=== PATIENT | female | born 1995 | race Hispanic/Latino ===

== ENCOUNTER 2021-03-16 09:52 | Outpatient (CLI) | payer OTHER | END 2021-03-16 09:53 | disposition home or self-care (01) | LOC: BICULT 09:52 | PROVIDERS: ATTEND Family Medicine | DX: Z34.03 Encounter for supervision of normal first pregnancy, third trimester (principal); Z3A.28 28 weeks gestation of pregnancy | CPT/HCPCS: 76805 ==